=== PATIENT | female | born 1955 | race African-American/Black ===

== ENCOUNTER 2022-02-16 16:34 | Inpatient (IN) | payer MEDICAID ==
[~2022-02-16] VITALS: Ht 167.6 cm; Wt 91.0 kg
[2022-02-16] MEDS ORDERED: NITROGLYCERIN OINT 1GM/INCH UDPKT TD ONE (17:00)
[2022-02-16] MEDS ORDERED: ASPIRIN 81MG TABLET PO ONE (17:00)
[2022-02-16 17:31] LABS: BASOPHILS % 0.6 % (0.0-2.0); EOSINOPHILS % 1.3 % (0.0-5.0); HEMATOCRIT. 38.8 % (36.0-48.0); HEMOGLOBIN. 12.3 g/dL (12.0-16.0); MEAN CORPUSCULAR HEMOGLOBIN 25.3 pg (28.0-32.0); MEAN CORPUSCULAR VOLUME 79.9 fL (81.0-99.0); MEAN PLATELET VOLUME 7.5 fl (7.4-10.4); MONOCYTES % 10.2 % (2.0-8.0); NEUTROPHILS % 67.9 % (40.0-76.0); PLATELET 326 x1000/uL (130-400); RED BLOOD CELL COUNT 4.86 mill/uL (4.2-5.4)
[2022-02-16 17:45] LABS: CHLORIDE 103 mEq/L (98-107)
[2022-02-16] MEDS ORDERED: CLONIDINE 0.1MG TABLET PO PRN (22:45)
[2022-02-16] MEDS ORDERED: ONDANSETRON HCL 4MG/2ML INJ IV PRN (22:45)
[2022-02-16] MEDS ORDERED: HYDROCODONE/ACETAMINOPHEN 5/325MG TABLET PO PRN (22:45)
[2022-02-16] MEDS ORDERED: MORPHINE SULFATE 2 MG/ML CPJ (NOT FOR IM USE) IV PRN (22:45)
[2022-02-16] MEDS ORDERED: NALOXONE HCL 0.4MG/ML VIAL IV PRN (22:45)
[2022-02-17 01:29] LABS: CLARITY URINE CLEAR (CLEAR); COLOR URINE YELLOW (YELLOW); KETONES URINE NEGATIVE (NEGATIVE); LEUKOCYTE ESTERASE URINE 2+ (NEGATIVE); NITRITE URINE NEGATIVE (NEGATIVE); OCCULT BLOOD URINE NEGATIVE (NEGATIVE); PROTEIN URINE 1+ (NEGATIVE); SPECIFIC GRAVITY URINE 1.012 (1.005-1.030); UROBILINOGEN URINE 0.2 E.U./dL (0.2-1.0)
[2022-02-17 01:46] LABS: *AMPHETAMINES SCREEN URINE NEGATIVE (NEGATIVE); *BARBITURATES SCREEN URINE NEGATIVE (NEGATIVE); *BENZODIAZEPINES SCREEN URINE NEGATIVE (NEGATIVE); *COCAINE SCREEN URINE NEGATIVE (NEGATIVE); CANNABINOID URINE SCREEN NEGATIVE (NEGATIVE); METHADONE URINE SCREEN NEGATIVE (NEGATIVE); OPIATES URINE SCREEN PRESUMTIVE POSITIVE (NEGATIVE); PHENCYCLIDINE URINE SCREEN NEGATIVE (NEGATIVE)
[2022-02-17 06:40] LABS: BASOPHILS % 0.7 % (0.0-2.0); EOSINOPHILS % 1.9 % (0.0-5.0); HEMATOCRIT. 38.6 % (36.0-48.0); HEMOGLOBIN. 12.2 g/dL (12.0-16.0); LYMPHOCYTES % 22.6 % (20.0-50.0); MEAN CORPUSCULAR HEMOGLOBIN 25.5 pg (28.0-32.0); MEAN CORPUSCULAR VOLUME 80.6 fL (81.0-99.0); MEAN PLATELET VOLUME 7.7 fl (7.4-10.4); MONOCYTES % 12.6 % (2.0-8.0); NEUTROPHILS % 62.2 % (40.0-76.0); PLATELET 304 x1000/uL (130-400); RED BLOOD CELL COUNT 4.79 mill/uL (4.2-5.4); RED CELL DISTRIBUTION WIDTH 17.9 % (11.6-14.6)
[2022-02-17 06:46] LABS: CHLORIDE 102 mEq/L (98-107)
[2022-02-17 06:52] LABS: CREATINE KINASE MB FRACTION 2.9 ng/mL (0.5-3.6)
[2022-02-17 10:00] VITALS: BP 150/63
[2022-02-17 12:00] VITALS: BP 135/64
[2022-02-17] MEDS: ASPIRIN 81MG EC TABLET PO SCH (13:06)
[2022-02-17] MEDS: ENOXAPARIN 30MG/0.3ML SYR SUBCUT SCH ×2 (13:06→21:22)
[2022-02-17] MEDS: FOLIC ACID 1MG TABLET PO SCH (13:07)
[2022-02-17 15:27] LABS: CREATINE KINASE MB FRACTION 2.1 ng/mL (0.5-3.6)
[2022-02-17 15:43] VITALS: BP 150/63
[2022-02-17 16:00] VITALS: BP 148/77
[2022-02-17 20:00] VITALS: BP_SYST 128; BP_SYST 146; BP_DIAS 54; BP_DIAS 65
[2022-02-18] VITALS (7 sets, daily range): BP systolic 126–159; BP diastolic 54–80
[2022-02-18 06:40] LABS: BASOPHILS % 0.6 % (0.0-2.0); EOSINOPHILS % 1.9 % (0.0-5.0); HEMATOCRIT. 38.6 % (36.0-48.0); HEMOGLOBIN. 12.5 g/dL (12.0-16.0); LYMPHOCYTES % 30.8 % (20.0-50.0); MEAN CORPUSCULAR HEMOGLOBIN 26.1 pg (28.0-32.0); MEAN CORPUSCULAR VOLUME 80.2 fL (81.0-99.0); MONOCYTES % 13.7 % (2.0-8.0); PLATELET 310 x1000/uL (130-400); RED BLOOD CELL COUNT 4.81 mill/uL (4.2-5.4); RED CELL DISTRIBUTION WIDTH 17.9 % (11.6-14.6)
[2022-02-18 06:45] LABS: CHLORIDE 104 mEq/L (98-107)
[2022-02-18] MEDS ORDERED: AMLODIPINE 5MG TABLET PO SCH (09:00)
[2022-02-18] MEDS: ASPIRIN 81MG EC TABLET PO SCH (09:20)
[2022-02-18] MEDS: FOLIC ACID 1MG TABLET PO SCH (09:20)
[2022-02-18] MEDS: ENOXAPARIN 30MG/0.3ML SYR SUBCUT SCH (09:20)
[2022-02-18] MEDS ORDERED: FURO-152 PO (17:14)
[2022-02-18] MEDS ORDERED: POTA8CAP20 MT (17:14)
[2022-02-18] MEDS ORDERED: APIX2.5T MT (17:14)
[2022-02-18] MEDS ORDERED: GABA800T97 MT (17:14)
[2022-02-18] MEDS ORDERED: ASPI-1406 MT (17:14)
[2022-02-18] MEDS ORDERED: AMLO10TA4 MT (17:14)
== END 2022-02-18 21:29 | disposition home or self-care (01) | DRG 198 ==
LOC: ER 16:34 → MICUSO 20:32 → EDBEDREQ 21:21 → 8WST 02-17 08:54
PROVIDERS: ADMIT Internal Medicine Nephrology; ATTEND Internal Medicine Nephrology
DX: I24.9 Acute ischemic heart disease, unspecified (principal); I48.91 Unspecified atrial fibrillation; N39.0 Urinary tract infection, site not specified; J44.9 Chronic obstructive pulmonary disease, unspecified; Z88.8 Allergy status to other drugs, medicaments and biological substances
CPT/HCPCS: 36415; 71045; 80048; 80053; 80305; 81003; 82550; 82553; 83735; 83880; 84484; 85025; 85379; 93005; 93306; 93970; 99285; C1893; J1650; J2270